=== PATIENT | male | born 1995 | race Two or more races ===

== ENCOUNTER 2022-02-26 11:50 | Emergency (ER) | payer OTHER ==
[~2022-02-26] VITALS: Ht 175.3 cm; Wt 97.5 kg
--- NOTE | 2022-02-26 12:05 | NUR ---
REceived pt 26 yrs male came from home c/o chest pain 3day ago came and rose pain level 8/10 resting and comfortable at this time
--- NOTE | 2022-02-26 12:15 | NUR ---
BLOOD DROW BY LAB TACH
[2022-02-26] MEDS ORDERED: ACETAMINOPHEN ES 500 MG TABLET ONE (13:56)
--- NOTE | 2022-02-26 13:57 | NUR ---
c/o chest pain 12/16 DILAN NOTEFED ORDER WAS GIVEN
[2022-02-26] MEDS ORDERED: ACETAMINOPHEN ES 500 MG TABLET PO ONE (14:00)
--- NOTE | 2022-02-26 14:32 | NUR ---
Patient discharged to home in stable condition. Written and verbal after care instructions given. Patient verbalizes understanding of instruction.
[2022-02-26 14:34] VITALS: BP 110/65
== END 2022-02-26 14:34 | disposition home or self-care (01) ==
LOC: ER 11:59
DX: R07.89 Other chest pain (principal)
CPT/HCPCS: 71045-TC